=== PATIENT | female | born 2000 | race Caucasian/White ===

== ENCOUNTER 2024-06-21 01:51 | Emergency (ER) | payer BC, SELFPAY ==
[2024-06-21 01:53] VITALS: BP 125/85; PULSE 78; RESP 20; TEMP 36.2; O2SAT 100; BMI 22.3
[2024-06-21] MEDS: Acetaminophen 1,000 MG/100 ML PIGGYBACK 400 MG IV (02:32)
[2024-06-21] MEDS: diphenhydrAMINE HCL 50 MG/ML VIAL 25 MG IVPUSH (02:33)
[2024-06-21] MEDS: Prochlorperazine Edisylate 10 MG/2 ML VIAL IVPUSH (02:33)
[2024-06-21] MEDS: dexAMETHasone sod phosphate 10 MG/ML VIAL IVPUSH (02:33)
[2024-06-21] MEDS: 0.9 % Sodium Chloride 1,000 ML 999 ML IV (02:34)
[2024-06-21 03:00] VITALS: RESP 14
--- NOTE | 2024-06-21 03:26 | ED.GENADULT ---
HPI - General Adult General Chief complaint: Headache Stated complaint: migraine Time Seen by Provider: 06/21/24 02:05 Source: patient Limitations: no limitations History of Present Illness ED Provider: Naomi Garcia PA-C HPI narrative: 23-year-old female with a history of migraine, presents with a migraine headache since earlier this evening. The pain is retro-orbital, with the associated phonophobia, photophobia, nausea vomiting. The patient has preceding aura at times. Patient tried to use her home medications without relief of symptoms; zomig x 2 and 800mg ibuprofen. The patient denies known trigger for her migraine, she has not been recently sick, no cough cold symptoms no fever, no neck pain, she is not starting her menstrual cycle. Related Data Allergies Allergy/AdvReac Type Severity Reaction Status Date / Time No Known Allergies Allergy Verified 06/21/24 01:56 Review of Systems Review of Systems: Yes all other systems are reviewed and are negative Constitutional: Constitutional: Denies fatigue, Denies fever(s) and Reports headache(s) ENT: Denies dizziness, Reports headache(s) and Denies neck pain Cardiovascular: Cardiovascular: Denies chest pain Respiratory: Respiratory: Denies cough Gastrointestinal: Gastrointestinal: Denies abdominal pain, Reports nausea and Reports vomiting Musculoskeletal: Musculoskeletal: Denies back pain, Denies myalgias and Denies neck pain Neurologic: Denies dizziness and Reports headache(s) Endocrine: Endocrine: Denies fatigue PMFSH Past Medical History Attestation statement: The following information was validated with the patient. Physical Exam ED Vital Signs: Vital Signs - 24 hr 06/21/24 01:53 06/21/24 03:00 Temperature 97.1 F Pulse Rate 78 Respiratory Rate 20 14 Blood Pressure 125/85 Pulse Oximetry 100 Oxygen Delivery Method Room Air BMI result Body Mass Index 22.3 Const Other: Alert Orientation/consciousness: patient oriented x3 Neck Neck: Yes full ROM and Yes no meningeal signs Resp Effort & Inspection: normal respiratory effort Cardio Other: Normal peripheral perfusion Skin Other: Warm dry no rash Neuro General: patient oriented x3, gait normal, no meningeal signs, no focal motor deficits and CN's II-XI intact bilaterally Psych Other: Cooperative Course Reevaluation(s) Reevaluation #1: Symptoms much improved, eager for discharge Medications Administered Discontinued Medications Generic Name Dose Route Start Last Admin Trade Name Freq PRN Reason Stop Dose Admin Dexamethasone Sodium Phosphate 10 mg 06/21/24 02:10 06/21/24 02:33 Dexamethasone Sod Phosphate 10 Mg/Ml Vial IVPUSH 06/21/24 02:11 10 mg ONCE ONE Administration Diphenhydramine HCl 25 mg 06/21/24 02:10 06/21/24 02:33 Diphenhydramine Hcl 50 Mg/Ml Vial IVPUSH 06/21/24 02:11 25 mg ONCE ONE Administration Sodium Chloride 1,000 mls @ 999 mls/hr 06/21/24 02:15 06/21/24 03:38 Ns IV 06/21/24 03:15 Infused .Q1H1M BANDAR Infusion Acetaminophen 1,000 mg in 100 mls @ 400 mls/hr 06/21/24 02:10 06/21/24 03:00 Ofirmev IV 06/21/24 02:24 Infused ONCE ONE Infusion Prochlorperazine Edisylate 10 mg 06/21/24 02:10 06/21/24 02:33 Prochlorperazine Edisylate 10 Mg/2 Ml Vial IVPUSH 06/21/24 02:11 10 mg ONCE ONE Administration Medical Decision Making Medical Decision Making MDM Narrative: 23-year-old female with a history of migraine, presents with a migraine headache since earlier this evening. The pain is retro-orbital, with the associated phonophobia, photophobia, nausea vomiting. The patient has preceding aura at times. Patient tried to use her home medications without relief of symptoms; zomig x 2 and 800mg ibuprofen. The patient denies known trigger for her migraine, she has not been recently sick, no cough cold symptoms no fever, no neck pain, she is not starting her menstrual cycle. Problem: Migraine History: Per patient I have considered the following differential diagnoses: Migraine, intracranial hemorrhage, meningitis Plan: Patient has a history of migraine, her current symptoms of typical for her. We will give a migraine cocktail and reassess. Thought about meningitis, however there are no meningeal signs on exam, she has not been recently sick no fevers. Thought about intracranial hemorrhage, however there has been no preceding trauma, she is not on a blood thinner, she is neurologically intact, no indication for imaging. Discharge Plan Discharge Clinical Impression: Migraine Patient Disposition: Home, Self-Care Instructions: Migraine Headache (ED) Additional Instructions: You were treated for a migraine type headache. See home care instructions. Continue to follow up with your primary care as needed. If your headache remains refractory to your home medications, you may require discussion with your primary care provider to implement a medication to prevent headaches, versus managing them in the acute phase.
[2024-06-21 04:07] VITALS: BP 126/72; PULSE 89; RESP 16; TEMP 36.9; O2SAT 98
== END 2024-06-21 05:32 | disposition home or self-care (01) ==
LOC: HO.ED 05:21
PROVIDERS: Emergency Provider Internal Medicine
DX: G43.909 Migraine, unspecified, not intractable, without status migrainosus (principal)
CPT/HCPCS: 96361; 96374; 96375; 99284; J0131; J0737; J1100; J1200